=== PATIENT | female | born 1985 | race Caucasian/White ===

== ENCOUNTER 2024-01-07 20:36 | Observation (INO) | payer BC ==
[~2024-01-07] VITALS: Ht 165.1 cm; Wt 79.4 kg
[2024-01-07 21:40] VITALS: BP 120/74; PULSE 77; RESP 20; TEMP 98.1
== END 2024-01-07 23:37 | disposition left against medical advice (07) ==
LOC: MLD 20:36
PROVIDERS: ADMIT Obstetrics & Gynecology; ATTEND Obstetrics & Gynecology
DX: Z04.1 Encounter for examination and observation following transport accident (principal); Z3A.36 36 weeks gestation of pregnancy; V49.9XXA Car occupant (driver) (passenger) injured in unspecified traffic accident, initial encounter; Y93.89 Activity, other specified; Y92.89 Other specified places as the place of occurrence of the external cause; Y99.8 Other external cause status
CPT/HCPCS: G0378